=== PATIENT | male | born 2000 | race Hispanic/Latino ===

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

== ENCOUNTER 2018-04-28 13:51 | Emergency (ER) | payer OTHER ==
[~2018-04-28] VITALS: Ht 157.5 cm; Wt 69.4 kg
[~2018-04-28 13:51] MED LIST: BENTYL10 MG PO; ZOFRAN ODT4 MG PO
[2018-04-28] MEDS ORDERED: CILOXAN 0.100 DROP/5 BOTH EYES (17:35)
[2018-04-28 17:47] VITALS: BP 139/84
== END 2018-04-28 17:48 | disposition home or self-care (01) ==
LOC: EME 13:51
DX: S05.02XA Injury of conjunctiva and corneal abrasion without foreign body, left eye, initial encounter (principal); W22.8XXA Striking against or struck by other objects, initial encounter; Y99.0 Civilian activity done for income or pay
CPT/HCPCS: 99281; 99283